=== PATIENT | female | born 2000 | race Caucasian/White ===

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

== ENCOUNTER → 2022-03-27 | Outpatient (CLI) | payer OTHER ==
--- NOTE | 2022-03-27 13:15 | MR ---
EXAMINATION TYPE: MR brain wo con DATE OF EXAM: 03/27/2022 1:07 PM COMPARISON: NONE HISTORY: AMNESIA,R55 SYNCOPE Multiplanar and multispin-echo imaging of the brain was performed . The ventricles, basal cisterns and sulci overlying the cerebral convexities are within normal limits. There is no evidence for midline shift or mass effect. Acute intracranial hemorrhage or extra-axial collection is not evident. The brain parenchyma reveals no abnormal increased signal. No acute edema is identified. The paranasal sinuses and mastoid air cells are well-aerated. IMPRESSION: Unremarkable MRI of the brain.
== END | disposition home or self-care (01) ==
LOC: RADMRIMAIN 12:12
PROVIDERS: ATTEND Psychiatry & Neurology Neurology
DX: R41.3 Other amnesia (principal); R55 Syncope and collapse
CPT/HCPCS: 70551

== ENCOUNTER 2024-07-03 10:19 | Emergency (ER) | payer OTHER ==
--- NOTE | 2024-07-03 10:50 | ED ---
General Adult HPI - General Chief complaint: Fever Stated complaint: Fever,Cough,Vomiting Time Seen by Provider: 07/03/24 10:30 Source: patient, family, RN notes reviewed Mode of arrival: ambulatory Limitations: no limitations - History of Present Illness Initial comments: This is a 23-year-old female presenting to the emergency department with flulike symptoms over the past 2 weeks. Patient states that she tested positive for strep pharyngitis on Saturday at urgent care and prescribed amoxicillin however symptoms has persisted. States that the pain in her throat has improved however with medication administration. She endorses nausea, vomiting, fevers, chills, headaches, abdominal pain. Previous cholecystectomy. - Related Data Home Medications Medication Instructions Recorded Confirmed Ibuprofen 800 mg PO DIRECTED PRN 02/09/19 06/26/19 norethindrone-e.estradioL-iron 1 each PO DAILY 02/09/19 06/26/19 [Junel Fe 24 Tablet] Previous Rx's Medication Instructions Recorded Famotidine [Pepcid] 20 mg PO DAILY #30 tablet 03/03/19 Docusate [Colace] 100 mg PO BID #20 capsule 06/26/19 HYDROcodone/APAP 5-325MG [[place] 1 tab PO Q6HR PRN #10 tab 06/26/19 5-325] Allergies Allergy/AdvReac Type Severity Reaction Status Date / Time No Known Allergies Allergy Verified 07/03/24 10:29 Review of Systems ROS Statement: Those systems with pertinent positive or pertinent negative responses have been documented in the HPI. ROS Other: All systems not noted in ROS Statement are negative. Past Medical History Past Medical History: GERD/Reflux Additional Past Medical History / Comment(s): Hx IBS, HIATAL HERNIA. Chronic Abdominal pain since age 14, per mother - worsening w/ recent wgt loss, unable to keep food/fluids down. History of Any Multi-Drug Resistant Organisms: None Reported Past Surgical History: No Surgical Hx Reported Additional Past Surgical History / Comment(s): EGD, Colonscopy Past Anesthesia/Blood Transfusion Reactions: No Reported Reaction Past Psychological History: No Psychological Hx Reported Smoking Status: Never smoker Past Alcohol Use History: None Reported Past Drug Use History: None Reported - Past Family History Mother Family Medical History: No Reported History General Exam - General Exam Comments Initial Comments: Visual Physical Exam Vital signs reviewed General: Well-appearing, nontoxic, no acute distress. Head: Normocephalic, atraumatic Eyes: PERRLA, EOMI ENT: Airway patent Chest: Nonlabored breathing Skin: No visual rash, normal skin tone Neuro: Alert and oriented 3 Musculoskeletal: No gross abnormalities Limitations: no limitations General appearance: alert, in no apparent distress Neck exam: Present: normal inspection. Absent: tenderness, meningismus, lymphadenopathy Respiratory exam: Present: normal lung sounds bilaterally. Absent: respiratory distress, wheezes, rales, rhonchi, stridor Cardiovascular Exam: Present: regular rate, normal rhythm, normal heart sounds. Absent: systolic murmur, diastolic murmur, rubs, gallop, clicks GI/Abdominal exam: Present: soft, tenderness (epigastric), normal bowel sounds. Absent: distended, guarding, rebound, rigid Extremities exam: Present: normal inspection, full ROM, normal capillary refill. Absent: tenderness, pedal edema, joint swelling, calf tenderness Back exam: Present: normal inspection Skin exam: Present: warm, dry, intact, normal color. Absent: rash Course Vital Signs 07/03/24 10:27 Temperature 98.5 F Pulse Rate 88 Respiratory 16 Rate Blood Pressure 105/69 O2 Sat by Pulse 99 Oximetry Medical Decision Making - Medical Decision Making Was pt. sent in by a medical professional or institution (Dr. PA, HOT ROLLER, urgent care, hospital, or halfway...) When possible be specific @ -No Did you speak to anyone other than the patient for history (EMS, parent, family, police, friend...)? What history was obtained from this source @ -No Did you review nursing and triage notes (agree or disagree)? Why? @ -I reviewed and agree with nursing and triage notes Were old charts reviewed (outside hosp., previous admission, EMS record, old EKG, old radiological studies, urgent care reports/EKG's, halfway records)? Report findings @ -No old charts were reviewed Differential Diagnosis (chest pain, altered mental status, abdominal pain women, abdominal pain men, vaginal bleeding, weakness, fever, dyspnea, syncope, headache, dizziness, GI bleed, back pain, seizure, CVA, palpatations, mental health, musculoskeletal)? @ -Differential Abdominal Pain Women: Appendicitis, Cholecystitis, diverticulosis, ischemic bowel, pancreatitis, hepatitis, UTI, gastroenteritis, AAA, incarcerated hernia, bowel obstruction, constipation, inflammatory bowel, hepatitis, peptic ulcer disease, splenic infarction, perforated viscus, vulvitis, ovarian torsion, PID, kidney stone, placenta abruption, this is not meant to be an all-inclusive list EKG interpreted by me (3pts min.). @ -None X-rays interpreted by me (1pt min.). @ -Chest x-ray completed with no acute cardiopulmonary process or disease CT interpreted by me (1pt min.). @ -None done U/S interpreted by me (1pt. min.). @ -None done What testing was considered but not performed or refused? (CT, X-rays, U/S, labs)? Why? @ -None What meds were considered but not given or refused? Why? @ -None Did you discuss the management of the patient with other professionals (professionals i.e. , PA, HOT ROLLER, lab, RT, psych nurse, director social welfare, reaming machine operator, teacher, duty officer, case assistant)? Give summary @ -No Was smoking cessation discussed for >3mins.? @ -No Was critical care preformed (if so, how long)? @ -No Were there social determinants of health that impacted care today? How? (Homelessness, low income, unemployed, alcoholism, drug addiction, transportation, low edu. Level, literacy, decrease access to med. care, [facility], rehab)? @ -No Was there de-escalation of care discussed even if they declined (Discuss DNR or withdrawal of care, Hospice)? DNR status @ -No What co-morbidities impacted this encounter? (DM, HTN, Smoking, COPD, CAD, C ancer, CVA, ARF, Chemo, Hep., AIDS, mental health diagnosis, sleep apnea, morbid obesity)? @ -None Was patient admitted / discharged? Hospital course, mention meds given and route, prescriptions, significant lab abnormalities, going to OR and other pertinent info. @ -Discharge. 23-year-old female presenting with abdominal pain, nausea and vomiting. Overall patient is well-appearing. Pain is mildly reproduced on palpation of the epigastric region with no evidence of rebound tenderness or rigidity. Patient was offered antiemetics however declined stating that she feels well. Recommend patient undergo laboratory testing however she is declined. Urinalysis unremarkable, hCG negative. Viral swab unremarkable. Chest x-ray no acute process. Patient is able to tolerate liquids and is well- appearing on reevaluation. Recommend she follow a clear liquid diet over 24 hours and after slowly introducing foods. Case discussed with Dr. Koroma Undiagnosed new problem with uncertain prognosis? @ -No Drug Therapy requiring intensive monitoring for toxicity (Heparin, Nitro, Insulin, Cardizem)? @ -No Were any procedures done? @ -No Diagnosis/symptom? @ -Acute nausea and vomiting Acute, or Chronic, or Acute on Chronic? @ -Acute Uncomplicated (without systemic symptoms) or Complicated (systemic symptoms)? @ -Uncomplicated Side effects of treatment? @ -No Exacerbation, Progression, or Severe Exacerbation? @ -No Poses a threat to life or bodily function? How? (Chest pain, [place], [place], pneumonia, PE, COPD, DKA, ARF, appy, cholecystitis, CVA, Diverticulitis, Homicidal, Jocelyne cidal, threat to staff... and all critical care pts) @ -No - Lab Data Lab Results 07/03/24 07/03/24 07/03/24 Range/Units 10:31 12:01 12:01 Urine Color Yellow Urine Appearance Cloudy H (Clear) Urine pH 6.0 (5.0-8.0) Ur Specific [place] 1.029 (1.001-1.035) Urine Protein Trace H (Negative) Urine Glucose (UA) Negative (Negative) Urine Ketones Negative (Negative) Urine Blood Negative (Negative) Urine Nitrite Negative (Negative) Urine Bilirubin Negative (Negative) Urine Urobilinogen <2.0 (<2.0) mg/dL Ur Leukocyte Esterase Negative (Negative) Urine RBC 1 (0-5) /hpf Urine WBC 12 H (0-5) /hpf Ur Squamous Epith Cells 6 H (0-4) /hpf Urine Mucus Moderate H (None) /hpf Urine HCG, Qual Not Detected (Not Detectd) Influenza Type A (PCR) Not Detected (Not Detectd) Influenza Type B (PCR) Not Detected (Not Detectd) RSV (PCR) Not Detected (Not Detectd) SARS-CoV-2 (PCR) Not Detected (Not Detectd) Disposition Clinical Impression: Acute nausea with nonbilious vomiting Disposition: HOME SELF-CARE Condition: Good Instructions (If sedation given, give patient instructions): Acute Nausea and Vomiting (ED) Additional Instructions: Please return to the Emergency Department if symptoms worsen or any other concerns. It is recommended that you follow a clear liquid diet over 24 hours and after slowly reintroducing foods such as bananas, rice, yogurt, applesauce and toast. Complete full course of antibiotic as prescribed for strep throat. Is patient prescribed a controlled substance at d/c from ED?: No Referrals: Aracelis Oreilly MD [Primary Care Provider] - 1-2 days Time of Disposition: 12:36
[2024-07-03 11:12] LABS: Influenza A Not Detected (Not Detectd); Influenza B Not Detected (Not Detectd); RSV Not Detected (Not Detectd)
--- NOTE | 2024-07-03 11:16 | XR ---
EXAMINATION TYPE: XR chest 2V DATE OF EXAM: 07/03/2024 11:04 AM COMPARISON: None. CLINICAL INDICATION: Female, 23 years old with history of cough, fevers, congestion, TECHNIQUE: Frontal and lateral views of the chest are obtained. FINDINGS: There is no focal air space opacity, pleural effusion, or pneumothorax seen. The cardiac silhouette size is within normal limits. The osseous structures are intact. IMPRESSION: No acute cardiopulmonary process. [facility], , 07/03/2024 11:14 AM
[2024-07-03 12:23] LABS: Appearance,Urine Cloudy (Clear); Bilirubin,Urine Negative (Negative); Blood,Urine Negative (Negative); Color,Urine Yellow; Glucose,Urine (UA) Negative (Negative); Ketones,Urine Negative (Negative); Leukocyte Esterase,Urine Negative (Negative); Mucus,Urine Moderate /hpf; Nitrite,Urine Negative (Negative); Protein,Urine Trace (Negative); RBC,Urine 1 /hpf (0-5); Specific Gravity,Urine 1.029 (1.001-1.035); Squamous Epithelial Cell,Urine 6 /hpf (0-4); Urobilinogen,Urine <2.0 mg/dL (<2.0); WBC,Urine 12 /hpf (0-5)
[2024-07-03 12:54] VITALS: BP 108/72; PULSE 94; RESP 20; TEMP 98.9
== END 2024-07-03 12:54 | disposition home or self-care (01) ==
LOC: EC 10:19
DX: R11.2 Nausea with vomiting, unspecified (principal)
CPT/HCPCS: 71046; 81001; 81025; 87636; 99284